=== PATIENT | male | born 1980 | race Caucasian/White ===

== ENCOUNTER → 2019-09-11 | Outpatient (CLI) | payer OTHER ==
[~2019-09-11] VITALS: Ht 175.3 cm; Wt 88.5 kg
[~2019-09-11] MED LIST: AMITRIPTYLINE H25 M2 PO; AMITRIPTYLINE H50 M2 PO; AMITRIPTYLINE H75 M1 PO; CHANTIX1 MG PO; CIPRO HC OTIC S10 ML OT; FLEXERIL PO; GRALISE1 EACH PO; GRALISE600 MG PO; HYDROCODON-ACE1 EAC5 PO; METHADONE HCL 110 M1 PO; METHADOSE10 MG PO; NEURONTIN 300300 M1 PO; NEURONTIN300 MG PO; NOHOMEMEDICATIONS; WELLBUTRIN SR150 MG PO
[2019-09-11 09:09] VITALS: BP 138/88
--- NOTE | 2019-09-11 09:27 | NUR ---
Pain Clinic Assessment: 1. History of Osteoarthritis: Not Applicable History of Rheumatoid Arthritis: Not Applicable 2. Height: 5 ft. 9 in. 175.3 cm. Weight: 195.0 lb. oz. 88.452 kg. Patient's BMI: 28.8 3. Vital Signs: BP: 138/88 Pulse: 91 Resp: 18 Temp: 02 Sat: 100 ECG Mon: 4. Pain Intensity: 9.5 5. Fall Risk: Dizziness: N Needs help standing or walking: N Fallen in the last 3 months: N Fall risk comments: 6. Patient on Blood Thinner: None 7. History of Hypertension: N 8. Opioid Therapy greater than 6 weeks: Y Opiate Contract Signed: 09/11/19 9. Risk Assessment Tool Provided: low-0 10. Functional Assessment Tool: 11. Recreational Drug Use: Never Drug Type: Tobacco Use: Former Smoker Tobacco Type: Amount or Packs/day: How Many Years: Alcohol Use: No Frequency: Quant:
--- NOTE | 2019-09-23 08:09 | HPC ---
[facility] [place] [address] PAIN MANAGEMENT CONSULTATION Name: DINA MEJÍA Room #: REG JOSE Lomas.#: [id number] Admission: 09/11/19 Attend Phys: Enedina Handley MD Discharge: Date of : 80 Report #: [id number] THIS REPORT FOR: cc: Rober Euceda,Enedina Rizvi MD ~ CC: Enedina Euceda DATE OF SERVICE: 09/11/2019 PRIMARY CARE PHYSICIAN: Rober Euceda DO CHIEF COMPLAINT: Here for medication renewal. HISTORY: The patient is a 39-year-old gentleman who has been followed in the pain clinic because of chronic pain. As you recall, he has undergone Thoracic Surgery. He continues to have pain, which is problematic. He finds that his medications have been beneficial. He would like to continue with their use. He has rated the pain today as 9.5/10. With his medications in the past, he has had no problems with his sensorium. He is able to think clearly. Continues to have a young son who lives with him. He would like to have his medications renewed. ALLERGIES: DEMEROL. CURRENT MEDICATIONS: Amitriptyline 50 mg 2 tablets at bedtime, Flexeril 10 mg t.i.d., hydrocodone 10/325 one p.o. q. 4 hours p.r.n., and methadone 10 mg 1 p.o. b.i.d. PAIN CLINIC ASSESSMENT/PQRS: 1. History of osteoarthritis. The patient is not being treated for osteoarthritis. He is not being treated for rheumatoid arthritis. 2. Height 5 feet 9 inches, weight 195 pounds, BMI is 28.8. 3. Vital signs: Blood pressure 138/88, pulse 91, respiratory rate 18, room air saturations 100%. 4. Pain intensity 9.5/10. 5. Fall history: The patient has not fallen in the last 3 months. 6. Blood thinner. The patient is not on a blood thinning medication. 7. History of hypertension. The patient is not being treated for hypertension. 8. Opioids greater than 6 weeks. The patient receives medication from one source, the pain clinic. 9. Risk assessment tool, low for opioid use. 10. Functional assessment tool 38 of 70. 11. Recreational drug use. The patient denies. 12. Tobacco: The patient is a former smoker. [address] [address] PAIN MANAGEMENT CONSULTATION Name: DINA MEJÍA Room #: REG CLI [facility]#: [id number] Admission: 09/11/19 Attend Phys: Enedina Handley MD Discharge: Date of : 80 Report #: [id number] 13. Alcohol. The patient denies frequent use of alcoholic beverages. PHYSICAL EXAMINATION: GENERAL: The patient is a well-developed, well-nourished white male. Appears his stated age. He is alert and oriented x 3. His affect is appropriate. Speech is fluent. HEENT: Normocephalic, atraumatic. Extraocular eye muscles intact. Sclerae nonicteric. Mucous membranes are moist. NECK: Without adenopathy or JVD. HEART: Regular rate. LUNGS: Clear to auscultation. MUSCULOSKELETAL: The patient without significant scoliosis, kyphosis or lordosis. The patient has some discomfort and pain in the T7/T8 and T8/T9 dermatomal distribution. Upper extremity muscle strength judged to be 5/5 for the major muscle groups in the upper extremity. The patient's lower extremity muscle strength 5/5 for the major muscle groups in the lower extremity. IMPRESSION: 1. Chronic thoracic pain, status post surgery, 2014 with disk surgery at T7 through T9 with continuous thoracic pain. 2. Status post concussion in the past, problem has resolved. 3. Depression. 4. Chronic pain treated with opioid regimen. 5. The patient has elected to change from [facility] in [place] to [facility] in [place], [place] because of its proximity to his [facility]. RECOMMENDATIONS: We discussed treatment options with the patient. Risks and benefits of medications were again discussed. Problems were reviewed. The patient does continue to have a young son. Keeps his medications in a guarded area. He is aware that opioids can become less effective as time goes on because of development of tolerance. He is aware that the possibility of addiction is there. He has taken the medication as prescribed. He has worked to decrease use of tobacco. He would like to continue with his medication. A script for methadone 10 mg 1 p.o. b.i.d. has been provided. The patient has also been given a prescription for hydrocodone 10 mg 1 p.o. t.i.d. We would like to thank you for letting us participate in his care. He will call us if he has any concerns. We would like to thank you for letting us participate in his care. <ELECTRONICALLY SIGNED> By: Enedina Handley MD 09/23/19 [id number] Enedina Handley MD /CHRISTINE
== END ==
LOC: PAIN 06:49
PROVIDERS: ATTEND Anesthesiology Pain Medicine
DX: M54.6 Pain in thoracic spine (principal); F32.9 Major depressive disorder, single episode, unspecified; F11.20 Opioid dependence, uncomplicated; M96.1 Postlaminectomy syndrome, not elsewhere classified; Z87.39 Personal history of other diseases of the musculoskeletal system and connective tissue; Z87.891 Personal history of nicotine dependence; Z88.8 Allergy status to other drugs, medicaments and biological substances; Z79.899 Other long term (current) drug therapy

== ENCOUNTER → 2019-12-25 | Outpatient (CLI) | payer OTHER ==
[~2019-12-25] VITALS: Ht 175.3 cm; Wt 91.8 kg
[~2019-12-25] MED LIST changes: +AMITRIPTYLINE H75 M2 PO
--- NOTE | ~2019-12-25 | HPC ---
[facility] [place] [address] PAIN MANAGEMENT CONSULTATION Name: DINA MEJÍA Room #: REG JOSE Cesilia.#: [id number] Admission: 12/25/19 Attend Phys: Enedina Handley MD Discharge: Date of : 80 Report #: [id number] CC: Enedina Euceda DATE OF SERVICE: 12/25/2019 CHIEF COMPLAINT: Medicine is still helpful. HISTORY: The patient is a 39-year-old gentleman who has been followed in the pain clinic. He continues to suffer from thoracic pain. He has had surgery in the thoracic area, but his pain continues to be problematic. He finds that use of his current medicine regimen is quite helpful. He rates his pain as between 6-9 depending on the activity. He does not have any problems with his medications. He is able to think clearly. He would like to have the medications renewed. He continues to work. ALLERGIES: DEMEROL. CURRENT MEDICATIONS: Amitriptyline 50 mg 2 tablets at bedtime, Flexeril 10 mg t.i.d., hydrocodone 10/325 one p.o. every 4 hours and methadone 10 mg 1 p.o. b.i.d. PAIN CLINIC ASSESSMENT AND PQRS: 1. The patient has a history of ____. The patient is not being treated for osteoarthritis. He is not being treated for rheumatoid arthritis. 2. Height 5 feet 9 inches, weight 196 pounds, BMI is 28. 3. Vital Signs: Blood pressure 140/90, pulse is 95, respiratory rate 18, room air saturation 100%. 4. Pain intensity is 8/10. 5. Fall history: The patient has not fallen in the last 3 months. 6. Blood thinner. The patient is not on a blood thinning medication. 7. Risk assessment tool, low for opioid use. 8. Recreational drug use. The patient denies. 9. Functional assessment tool 38/70. 10. Recreational drugs. The patient denies. 11. Tobacco: The patient is a former smoker. 12. Alcohol. The patient denies frequent use of alcoholic beverages. PHYSICAL EXAMINATION: GENERAL: The patient is a well-developed, well-nourished white male. He appears his stated age. He is alert and oriented x 3. His affect is appropriate. Speech is fluent. HEENT: Normocephalic, atraumatic. Extraocular eye muscles intact. Sclerae nonicteric. Mucous membranes are moist. The patient is wearing a facial covering. HEART: Regular rate. LUNGS: Clear. MUSCULOSKELETAL: The patient has some pain in the T8-T9 area. The patient is without significant scoliosis, kyphosis or lordosis. Lower extremity muscle strength judged to be 5/5 for the major muscle groups in the lower extremity. IMPRESSION: 1. Chronic thoracic pain, status post surgery in 2004 with disk surgery at T7 through T9 with continuous thoracic pain. 2. Status post concussion in the past has resolved. 3. Depression. 4. Chronic pain, treated with opioid regimen. 5. The patient has elected to follow up in [facility] for pain medications. RECOMMENDATIONS: We discussed treatment options with the patient. Risks and benefits of the medications were discussed. The patient feels medications are helpful. He does have a young son. He keeps his medications in a guarded area. He is aware that opioid medications can become less effective as time goes on. He is aware that some patients have become addicted and as a result of overdose. He has taken his medication as prescribed. He feels that these medications helped him to be gainfully employed. A script for his medications has been renewed. He will continue with amitriptyline, Flexeril, and hydrocodone 10/325 one p.o. q. 4 hours p.r.n. in conjunction with methadone 10 mg 1 p.o. b.i.d. We would like to thank you for letting us participate in his care. We hope he continues to improve. By: [id number] Enedina Handley MD /nt
[2019-12-25 10:24] VITALS: BP 107/62
--- NOTE | 2019-12-25 10:36 | NUR ---
Pain Clinic Assessment: 1. History of Osteoarthritis: DENIES History of Rheumatoid Arthritis: DENIES 2. Height: 5 ft. 9 in. 175.3 cm. Weight: 202.4 lb. oz. 91.808 kg. Patient's BMI: 29.9 3. Vital Signs: BP: 107/62 Pulse: 94 Resp: 16 Temp: 02 Sat: 96 ECG Mon: 4. Pain Intensity: 5-6 5. Fall Risk: Dizziness: N Needs help standing or walking: N Fallen in the last 3 months: N Fall risk comments: 6. Patient on Blood Thinner: None 7. History of Hypertension: N 8. Opioid Therapy greater than 6 weeks: Y Opiate Contract Signed: 09/11/19 9. Risk Assessment Tool Provided: low-0 10. Functional Assessment Tool: 11. Recreational Drug Use: Never Drug Type: Tobacco Use: Former Smoker Tobacco Type: Amount or Packs/day: How Many Years: Alcohol Use: No Frequency: Quant:
== END ==
LOC: PAIN 06:51
PROVIDERS: ATTEND Anesthesiology Pain Medicine
DX: M54.6 Pain in thoracic spine (principal); G89.29 Other chronic pain; F07.81 Postconcussional syndrome; F32.9 Major depressive disorder, single episode, unspecified; Z88.8 Allergy status to other drugs, medicaments and biological substances; Z79.899 Other long term (current) drug therapy

== ENCOUNTER → 2020-03-25 | Outpatient (CLI) | payer OTHER ==
[~2020-03-25] VITALS: Ht 175.3 cm; Wt 93.7 kg
[2020-03-25 15:11] VITALS: BP 128/76
--- NOTE | 2020-03-25 15:24 | NUR ---
Pain Clinic Assessment: 1. History of Osteoarthritis: DENIES History of Rheumatoid Arthritis: DENIES 2. Height: 5 ft. 9 in. 175.3 cm. Weight: 206.6 lb. oz. 93.713 kg. Patient's BMI: 30.5 3. Vital Signs: BP: 128/76 Pulse: 80 Resp: 14 Temp: 02 Sat: 97 ECG Mon: 4. Pain Intensity: 6 5. Fall Risk: Dizziness: N Needs help standing or walking: N Fallen in the last 3 months: N Fall risk comments: 6. Patient on Blood Thinner: None 7. History of Hypertension: N 8. Opioid Therapy greater than 6 weeks: Y Opiate Contract Signed: 09/11/19 9. Risk Assessment Tool Provided: low-0 10. Functional Assessment Tool: 11. Recreational Drug Use: Never Drug Type: Tobacco Use: Former Smoker Tobacco Type: Amount or Packs/day: How Many Years: Alcohol Use: No Frequency: Quant:
== END ==
LOC: PAIN 06:55 → TELEPC 06:55 → PAIN 14:21
PROVIDERS: ATTEND Anesthesiology Pain Medicine
DX: M54.6 Pain in thoracic spine (principal); G89.29 Other chronic pain; F32.9 Major depressive disorder, single episode, unspecified; Z79.891 Long term (current) use of opiate analgesic

== ENCOUNTER → 2020-06-17 | Outpatient (CLI) | payer OTHER ==
[~2020-06-17] VITALS: Ht 175.3 cm; Wt 93.9 kg
[2020-06-17 13:03] VITALS: BP 113/68
--- NOTE | 2020-06-17 13:13 | NUR ---
Pain Clinic Assessment: 1. History of Osteoarthritis: DENIES History of Rheumatoid Arthritis: DENIES 2. Height: 5 ft. 9 in. 175.3 cm. Weight: 207.0 lb. oz. 93.895 kg. Patient's BMI: 30.6 3. Vital Signs: BP: 113/68 Pulse: 75 Resp: 14 Temp: 02 Sat: 100 ECG Mon: 4. Pain Intensity: 6 5. Fall Risk: Dizziness: N Needs help standing or walking: N Fallen in the last 3 months: N Fall risk comments: 6. Patient on Blood Thinner: None 7. History of Hypertension: N 8. Opioid Therapy greater than 6 weeks: Y Opiate Contract Signed: 09/11/19 9. Risk Assessment Tool Provided: low-0 10. Functional Assessment Tool: 11. Recreational Drug Use: Never Drug Type: Tobacco Use: Former Smoker Tobacco Type: Amount or Packs/day: How Many Years: Alcohol Use: No Frequency: Quant:
== END ==
LOC: PAIN 06:57
PROVIDERS: ATTEND Anesthesiology Pain Medicine
DX: M54.6 Pain in thoracic spine (principal); F32.9 Major depressive disorder, single episode, unspecified; F11.20 Opioid dependence, uncomplicated; Z87.820 Personal history of traumatic brain injury; Z87.891 Personal history of nicotine dependence; Z79.899 Other long term (current) drug therapy

== ENCOUNTER → 2020-09-23 | Outpatient (CLI) | payer OTHER ==
[~2020-09-23] VITALS: Ht 175.3 cm; Wt 93.1 kg
[2020-09-23 08:42] VITALS: BP 121/66
--- NOTE | 2020-09-23 08:48 | NUR ---
Pain Clinic Assessment: 1. History of Osteoarthritis: DENIES History of Rheumatoid Arthritis: DENIES 2. Height: 5 ft. 9 in. 175.3 cm. Weight: 205.2 lb. oz. 93.078 kg. Patient's BMI: 30.3 3. Vital Signs: BP: 121/66 Pulse: 99 Resp: 14 Temp: 02 Sat: 100 ECG Mon: 4. Pain Intensity: 4 5. Fall Risk: Dizziness: N Needs help standing or walking: N Fallen in the last 3 months: N Fall risk comments: 6. Patient on Blood Thinner: None 7. History of Hypertension: N 8. Opioid Therapy greater than 6 weeks: Y Opiate Contract Signed: 09/11/19 9. Risk Assessment Tool Provided: low-0 10. Functional Assessment Tool: 11. Recreational Drug Use: Never Drug Type: Tobacco Use: Current Some Day Smoker Tobacco Type: Cigarettes Amount or Packs/day: 2 How Many Years: Alcohol Use: No Frequency: Quant:
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
== END ==
LOC: PAIN 06:55
PROVIDERS: ATTEND Clinical Nurse Specialist Adult Health
DX: M54.6 Pain in thoracic spine (principal); G89.29 Other chronic pain; F32.9 Major depressive disorder, single episode, unspecified; Z79.891 Long term (current) use of opiate analgesic; Z79.899 Other long term (current) drug therapy

== ENCOUNTER → 2020-10-21 | Outpatient (CLI) | payer OTHER ==
[~2020-10-21] VITALS: Ht 175.3 cm; Wt 93.9 kg
[2020-10-21 08:33] VITALS: BP 140/78
--- NOTE | 2020-10-21 08:38 | NUR ---
Pain Clinic Assessment: 1. History of Osteoarthritis: DENIES History of Rheumatoid Arthritis: DENIES 2. Height: 5 ft. 9 in. 175.3 cm. Weight: 207.0 lb. oz. 93.895 kg. Patient's BMI: 30.6 3. Vital Signs: BP: 140/78 Pulse: 118 Resp: 14 Temp: 02 Sat: 100 ECG Mon: 4. Pain Intensity: 6 5. Fall Risk: Dizziness: N Needs help standing or walking: N Fallen in the last 3 months: N Fall risk comments: 6. Patient on Blood Thinner: None 7. History of Hypertension: N 8. Opioid Therapy greater than 6 weeks: Y Opiate Contract Signed: 09/11/19 9. Risk Assessment Tool Provided: low-0 10. Functional Assessment Tool: 11. Recreational Drug Use: Never Drug Type: Tobacco Use: Current Some Day Smoker Tobacco Type: Cigarettes Amount or Packs/day: 10/week How Many Years: Alcohol Use: No Frequency: Quant:
== END ==
LOC: PAIN 06:48
PROVIDERS: ATTEND Anesthesiology Pain Medicine
DX: G89.29 Other chronic pain (principal); M54.6 Pain in thoracic spine; F17.200 Nicotine dependence, unspecified, uncomplicated; F32.9 Major depressive disorder, single episode, unspecified; Z88.8 Allergy status to other drugs, medicaments and biological substances; Z79.891 Long term (current) use of opiate analgesic; Z79.899 Other long term (current) drug therapy